=== PATIENT | male | born 1955 | race Hispanic/Latino ===

== ENCOUNTER 2020-09-29 19:47 | Emergency (ER) | payer OTHER ==
[~2020-09-29] VITALS: Ht 172.7 cm; Wt 82.6 kg
[2020-09-29] MEDS ORDERED: SODIUM CHLORIDE 0.9% 1000ML 1,000 ML IV STA (20:30)
[2020-09-29] MEDS ORDERED: ATROPINE SULFATE 1 MG/ML VIAL IV ONE (20:30)
[2020-09-29] MEDS ORDERED: METHYLPREDNISOLONE SOD SUCC 125 MG/2ML VIAL IV ONE (20:30)
[2020-09-29] MEDS ORDERED: SODIUM CHLORIDE FLUSH 10 ML SYR INJ PRN (20:30)
[2020-09-29] MEDS ORDERED: METHYLPREDNISOLONE SOD SUCC 125 MG/2ML VIAL ONE (20:51)
[2020-09-29] MEDS ORDERED: SODIUM CHLORIDE 0.9% 1000ML 1,000 ML ONE (20:51)
[2020-09-29] MEDS ORDERED: ATROPINE SULFATE 0.1 MG/ML 10ML SYR ONE (20:51)
[2020-09-29] MEDS ORDERED: PIPER-TAZ 3.375 GM 50 ML ONE (23:09)
[2020-09-29] MEDS ORDERED: PIPER-TAZ 3.375 GM 50 ML IV ONE (23:15)
[2020-09-29] MEDS ORDERED: CIPRO500 MG PO (23:52)
[2020-09-29] MEDS ORDERED: METRONIDAZOLE500 MG PO (23:52)
[2020-09-29] MEDS ORDERED: PREDNISONE20 MG PO (23:52)
[2020-09-29] MEDS ORDERED: PYRIDOSTIGMINE60 MG PO (23:52)
[2020-09-29] MEDS ORDERED: ONDANSETRON ODT8 MG PO (23:52)
[2020-09-29] MEDS ORDERED: IMODIUM A-D2 M2 PO (23:52)
[2020-10-01] MEDS ORDERED: BENAZEPRIL-HCT1 EAC3 (11:22)
[2020-10-01] MEDS ORDERED: AMLODIPINE BESYL5 MG PO (11:22)
[2020-10-01] MEDS ORDERED: METFORMIN HCL850 MG PO (11:22)
[2020-10-01] MEDS ORDERED: CIPRO500 MG PO (14:21)
[2020-10-01] MEDS ORDERED: LOMOTIL TABLET1 EACH PO (14:21)
[2020-10-01] MEDS ORDERED: FLAGYL500 MG PO (14:21)
== END 2020-09-30 00:14 | disposition home or self-care (01) ==
LOC: FSED 20:15
DX: R10.84 Generalized abdominal pain (principal); K52.9 Noninfective gastroenteritis and colitis, unspecified; G70.89 Other specified myoneural disorders; R11.2 Nausea with vomiting, unspecified; E86.0 Dehydration; Z20.828 Contact with and (suspected) exposure to other viral communicable diseases
CPT/HCPCS: 71045; 74177; 80053; 82553; 84484; 85025; 85379; 99284; J0461; J2543; J2930; J7030; U0002

== ENCOUNTER 2020-10-01 10:47 | Emergency (ER) | payer OTHER ==
[~2020-10-01] VITALS: Ht 172.7 cm; Wt 75.8 kg
[~2020-10-01 10:47] MED LIST: CIPRO500 MG PO; IMODIUM A-D2 M2 PO; METRONIDAZOLE500 MG PO; ONDANSETRON ODT8 MG PO; PREDNISONE20 MG PO; PYRIDOSTIGMINE60 MG PO
[2020-10-01] MEDS ORDERED: SODIUM CHLORIDE 0.9% 1000ML 1,000 ML IV STA (11:12)
[2020-10-01] MEDS ORDERED: METFORMIN HCL850 MG PO (11:22)
[2020-10-01] MEDS ORDERED: AMLODIPINE BESYL5 MG PO (11:22)
[2020-10-01] MEDS ORDERED: BENAZEPRIL-HCT1 EAC3 (11:22)
[2020-10-01] MEDS ORDERED: SODIUM CHLORIDE 0.9% 1000ML 1,000 ML ONE (11:33)
[2020-10-01] MEDS ORDERED: ONDANSETRON HCL INJ 2MG/ML 2ML 2 MG/ML VIAL IV NR (12:30)
[2020-10-01] MEDS ORDERED: LOMOTIL TABLET1 EACH PO (14:21)
[2020-10-01] MEDS ORDERED: FLAGYL500 MG PO (14:21)
[2020-10-01] MEDS ORDERED: CIPRO500 MG PO (14:21)
[2020-10-01 14:56] VITALS: BP 138/72
== END 2020-10-01 14:42 | disposition home or self-care (01) ==
LOC: FSED 11:14
DX: R10.9 Unspecified abdominal pain (principal); R19.7 Diarrhea, unspecified; D72.829 Elevated white blood cell count, unspecified; E11.65 Type 2 diabetes mellitus with hyperglycemia; I10 Essential (primary) hypertension; F17.210 Nicotine dependence, cigarettes, uncomplicated
CPT/HCPCS: 74176; 80048; 80076; 81003; 85025; 99284; J7030

== ENCOUNTER 2020-10-03 13:26 | Emergency (ER) | payer OTHER ==
[~2020-10-03] VITALS: Ht 172.7 cm; Wt 74.4 kg
[~2020-10-03 13:26] MED LIST changes: +AMLODIPINE BESYL5 MG PO; +BENAZEPRIL-HCT1 EAC3; +FLAGYL500 MG PO; +LOMOTIL TABLET1 EACH PO; +METFORMIN HCL850 MG PO
[2020-10-03] MEDS ORDERED: SODIUM CHLORIDE 0.9% 1000ML 1,000 ML IV STA ×2 (13:43→18:32)
[2020-10-03] MEDS ORDERED: ATROPINE SULFATE 1 MG/ML VIAL IV ONE (13:45)
[2020-10-03] MEDS ORDERED: PANTOPRAZOL 40MG/SOD CHL 0.9% 50 ML IV SCH (13:45)
[2020-10-03] MEDS ORDERED: METHYLPREDNISOLONE SOD SUCC 125 MG/2ML VIAL IV ONE (13:45)
[2020-10-03] MEDS ORDERED: PIPER-TAZ 3.375 GM 50 ML IV ONE (13:45)
[2020-10-03] MEDS ORDERED: PANTOPRAZOLE 40 MG 10ML VIAL IV ONE (14:00)
[2020-10-03] MEDS ORDERED: METHYLPREDNISOLONE SOD SUCC 125 MG/2ML VIAL ONE (14:23)
[2020-10-03] MEDS ORDERED: PANTOPRAZOLE 40 MG 10ML VIAL ONE (14:23)
[2020-10-03] MEDS ORDERED: PANTOPRAZOL 40MG/SOD CHL 0.9% 50 ML IV ONE (14:24)
[2020-10-03] MEDS ORDERED: SODIUM CHLORIDE 0.9% 1000ML 1,000 ML ONE (14:24)
[2020-10-03] MEDS ORDERED: PIPER-TAZ 3.375 GM 50 ML ONE (14:24)
[2020-10-03] MEDS ORDERED: ATROPINE SULFATE 0.1 MG/ML 10ML SYR ONE (14:24)
[2020-10-03] MEDS ORDERED: SODIUM CHLORIDE FLUSH 10 ML SYR INJ PRN (14:45)
== END 2020-10-03 19:40 | disposition other institution (70) ==
LOC: FSED 13:45
DX: G70.01 Myasthenia gravis with (acute) exacerbation (principal); K92.2 Gastrointestinal hemorrhage, unspecified; K52.9 Noninfective gastroenteritis and colitis, unspecified; E86.0 Dehydration; R94.5 Abnormal results of liver function studies; E11.65 Type 2 diabetes mellitus with hyperglycemia; Z20.828 Contact with and (suspected) exposure to other viral communicable diseases; I10 Essential (primary) hypertension; R94.31 Abnormal electrocardiogram [ECG] [EKG]
CPT/HCPCS: 71046; 74022; 80048; 80076; 81003; 82270; 82553; 83880; 84484; 85610; 96374; 96375; 99284; C9113; J2543; J2930; J7030; U0002; 93005; J0461

== ENCOUNTER 2021-11-07 15:09 | Emergency (ER) | payer OTHER ==
[~2021-11-07] VITALS: Ht 172.7 cm; Wt 72.3 kg
[2021-11-07] MEDS ORDERED: IBUPROFEN 600 MG TAB PO STA (15:30)
[2021-11-07] MEDS ORDERED: ONDANSETRON HCL INJ 2MG/ML 2ML 2 MG/ML VIAL IV STA (15:30)
[2021-11-07] MEDS ORDERED: SODIUM CHLORIDE 0.9% 500ML 500 ML IV ONE (15:30)
[2021-11-07] MEDS ORDERED: CRESTOR10 MG PO (15:46)
[2021-11-07] MEDS ORDERED: DILTIAZEM HCL60 MG PO (15:46)
[2021-11-07] MEDS ORDERED: MONTELUKAST SOD10 MG PO (15:46)
[2021-11-07] MEDS ORDERED: IBUPROFEN 600 MG TAB ONE (15:50)
[2021-11-07] MEDS ORDERED: ONDANSETRON HCL INJ 2MG/ML 2ML 2 MG/ML VIAL ONE (15:50)
[2021-11-07] MEDS ORDERED: SODIUM CHLORIDE 0.9% 500ML 500 ML ONE (15:50)
[2021-11-07] MEDS ORDERED: IBUPROFEN600 MG PO (16:43)
[2021-11-07] MEDS ORDERED: ONDANSETRON ODT4 MG PO (16:43)
== END 2021-11-07 17:23 | disposition home or self-care (01) ==
LOC: FSED 15:15
DX: U07.1 COVID-19 (principal); R50.9 Fever, unspecified; R05.9 Cough, unspecified; I10 Essential (primary) hypertension; E11.9 Type 2 diabetes mellitus without complications; G70.00 Myasthenia gravis without (acute) exacerbation; F17.210 Nicotine dependence, cigarettes, uncomplicated
CPT/HCPCS: 96374; 99283; J2405; J7040

== ENCOUNTER 2021-11-10 09:16 | Inpatient (IN) | payer OTHER ==
[~2021-11-10] VITALS: Ht 172.7 cm; Wt 72.1 kg
[~2021-11-10 09:16] MED LIST changes: +CRESTOR10 MG PO; +DILTIAZEM HCL60 MG PO; +IBUPROFEN600 MG PO; +MONTELUKAST SOD10 MG PO; +ONDANSETRON ODT4 MG PO
[2021-11-10] MEDS ORDERED: SODIUM CHLORIDE 0.9% 1000ML 1,000 ML IV STA (09:47)
[2021-11-10] MEDS ORDERED: DEXAMETHASONE SOD PHOS 10 MG/1 ML VIAL IV SCH (10:00)
[2021-11-10 10:03] LABS: BASOPHILS # (AUTO) 0.1 (0.0-0.1); BASOPHILS % 0.3 % (0.0-1.0); EOSINOPHILS # (AUTO) 0.1 (0.0-0.4); EOSINOPHILS % 0.9 % (0.0-6.0); HEMATOCRIT 48.7 % (38.2-49.6); HEMOGLOBIN 15.7 g/dL (14.0-18.0); LYMPHOCYTES # (AUTO) 1.7 (1.0-3.2); LYMPHOCYTES % 10.8 % (18.0-39.1); MEAN CORPUSCULAR HEMOGLOBIN 31.2 pg (28-32); MEAN CORPUSCULAR HGB CONC 32.2 g/dL (31-35); MEAN CORPUSCULAR VOLUME 96.8 fL (81-99); NEUTROPHILS % 81.6 % (38.7-80.0); PLATELET COUNT 336 x10e3/uL (140-360); RED BLOOD COUNT 5.03 x10e6/uL (4.3-5.7); RED CELL DISTRIBUTION WIDTH 12.9 % (11.7-14.4)
[2021-11-10] MEDS: ZINC SULFATE 50 MG CAP PO SCH (10:14)
[2021-11-10] MEDS: ASCORBIC ACID 500 MG TAB PO SCH ×2 (10:14→16:21)
[2021-11-10 10:21] LABS: ALBUMIN 2.8 g/dL (3.5-5.0); ALBUMIN/GLOBULIN RATIO 0.6 (0.8-2.0); ANION GAP 18.7 mmol/L (8-16); CALCIUM 9.6 mg/dL (8.4-10.2); CREATININE, SERUM 0.85 mg/dL (0.72-1.25); POTASSIUM 3.7 mmol/L (3.5-5.1)
[2021-11-10 10:23] LABS: CREATINE KINASE MB 0.3 ng/mL (0-5.0); INR 1.04; PARTIAL THROMBOPLASTIN TIME 40.1 seconds (23.8-35.5); PROTHROMBIN TIME 14.3 seconds (11.9-14.5)
[2021-11-10] MEDS: CEFTRIAXONE 1 GM in SODIUM CHLORIDE 0.9% 50ML 50 ML IV SCH (10:53)
[2021-11-10] MEDS ORDERED: ONDANSETRON HCL INJ 2MG/ML 2ML 2 MG/ML VIAL IV PRN (11:15)
[2021-11-10] MEDS ORDERED: SODIUM CHLORIDE 0.9% 1000ML 1,000 ML IV ONE (11:15)
[2021-11-10] MEDS ORDERED: PREDNISONE5 MG PO (12:13)
[2021-11-10] MEDS ORDERED: PYRIDOSTIGMINE PO (12:13)
[2021-11-10 12:45] VITALS: BP 124/74
[2021-11-10 13:00] VITALS: BP 124/74
[2021-11-10] MEDS ORDERED: REMDESIVIR 100MG 200 MG in SODIUM CHLORIDE 0.9% 100 ML IV ONE (14:00)
[2021-11-10] MEDS: ENOXAPARIN SOD INJ 40 MG/0.4 ML SYR SC SCH (16:21)
[2021-11-10] MEDS: DEXAMETHASONE SOD PHOS 10 MG/1 ML VIAL IV SCH ×2 (16:21→21:00)
[2021-11-10] MEDS: PYRIDOSTIGMINE BROMIDE 60 MG TAB PO SCH (16:21)
[2021-11-10] MEDS ORDERED: SODIUM CHLORIDE 0.9% 100 ML ONE (16:24)
[2021-11-10 16:25] VITALS: BP 115/70
[2021-11-10 20:00] VITALS: BP 115/69
[2021-11-10 21:00] VITALS: BP 115/69
[2021-11-11] VITALS (8 sets, daily range): BP systolic 109–130; BP diastolic 60–76
[2021-11-11] MEDS: PYRIDOSTIGMINE BROMIDE 60 MG TAB PO SCH ×5 (06:00→23:46)
[2021-11-11 06:43] LABS: BASOPHILS % 0.2 % (0.0-1.0); EOSINOPHILS % 0.1 % (0.0-6.0); HEMATOCRIT 41.5 % (38.2-49.6); HEMOGLOBIN 13.2 g/dL (14.0-18.0); LYMPHOCYTES # (AUTO) 1.1 (1.0-3.2); MEAN CORPUSCULAR HEMOGLOBIN 31.4 pg (28-32); MEAN CORPUSCULAR HGB CONC 31.8 g/dL (31-35); MEAN CORPUSCULAR VOLUME 98.8 fL (81-99); MONOCYTES # (AUTO) 0.7 (0.2-0.8); MONOCYTES % 6.4 % (4.4-11.3); NEUTROPHILS % 82.6 % (38.7-80.0); PLATELET COUNT 331 x10e3/uL (140-360); RED CELL DISTRIBUTION WIDTH 12.7 % (11.7-14.4)
[2021-11-11 07:20] LABS: ALBUMIN 2.2 g/dL (3.5-5.0); ALBUMIN/GLOBULIN RATIO 0.6 (0.8-2.0); ANION GAP 14.7 mmol/L (8-16); CALCIUM 8.8 mg/dL (8.4-10.2); CREATININE, SERUM 0.6 mg/dL (0.72-1.25); POTASSIUM 3.7 mmol/L (3.5-5.1)
[2021-11-11 07:52] LABS: CREATINE KINASE MB 0.7 ng/mL (0-5.0)
[2021-11-11] MEDS: ASCORBIC ACID 500 MG TAB PO SCH ×2 (08:39→17:20)
[2021-11-11] MEDS: CEFTRIAXONE 1 GM in SODIUM CHLORIDE 0.9% 50ML 50 ML IV SCH (08:39)
[2021-11-11] MEDS: ZINC SULFATE 50 MG CAP PO SCH (08:39)
[2021-11-11] MEDS: AMLODIPINE BESYLATE 5 MG TAB PO SCH (08:39)
[2021-11-11] MEDS: DEXAMETHASONE SOD PHOS 10 MG/1 ML VIAL IV SCH ×2 (08:39→20:55)
[2021-11-11] MEDS: REMDESIVIR 100MG 100 MG in SODIUM CHLORIDE 0.9% 100 ML IV SCH (14:25)
[2021-11-11] MEDS: ENOXAPARIN SOD INJ 40 MG/0.4 ML SYR SC SCH (17:20)
[2021-11-12] VITALS (7 sets, daily range): BP systolic 112–122; BP diastolic 62–74
[2021-11-12] MEDS: PYRIDOSTIGMINE BROMIDE 60 MG TAB PO SCH ×4 (06:08→23:51)
[2021-11-12 06:55] LABS: CREATINE KINASE MB 0.6 ng/mL (0-5.0)
[2021-11-12] MEDS: CEFTRIAXONE 1 GM in SODIUM CHLORIDE 0.9% 50ML 50 ML IV SCH (08:43)
[2021-11-12] MEDS: ZINC SULFATE 50 MG CAP PO SCH (08:43)
[2021-11-12] MEDS: ASCORBIC ACID 500 MG TAB PO SCH ×2 (08:43→16:07)
[2021-11-12] MEDS: AMLODIPINE BESYLATE 5 MG TAB PO SCH (08:43)
[2021-11-12] MEDS: DEXAMETHASONE SOD PHOS 10 MG/1 ML VIAL IV SCH ×2 (08:43→20:44)
[2021-11-12] MEDS: REMDESIVIR 100MG 100 MG in SODIUM CHLORIDE 0.9% 100 ML IV SCH (14:00)
[2021-11-12] MEDS: ENOXAPARIN SOD INJ 40 MG/0.4 ML SYR SC SCH (16:07)
[2021-11-13] VITALS (7 sets, daily range): BP systolic 113–130; BP diastolic 65–78
[2021-11-13] MEDS: PYRIDOSTIGMINE BROMIDE 60 MG TAB PO SCH ×3 (05:25→17:18)
[2021-11-13] MEDS: ZINC SULFATE 50 MG CAP PO SCH (08:27)
[2021-11-13] MEDS: CEFTRIAXONE 1 GM in SODIUM CHLORIDE 0.9% 50ML 50 ML IV SCH (08:27)
[2021-11-13] MEDS: AZITHROMYCIN 250 MG TAB PO SCH (08:27)
[2021-11-13] MEDS: AMLODIPINE BESYLATE 5 MG TAB PO SCH (08:27)
[2021-11-13] MEDS: ASCORBIC ACID 500 MG TAB PO SCH ×2 (08:27→17:17)
[2021-11-13] MEDS: DEXAMETHASONE SOD PHOS INJ 4 MG/ML SDV IV SCH ×2 (08:56→21:26)
[2021-11-13] MEDS ORDERED: SODIUM CHLORIDE 0.9% 250ML 250 ML ONE (17:05)
[2021-11-13] MEDS: REMDESIVIR 100MG 100 MG in SODIUM CHLORIDE 0.9% 100 ML IV SCH (17:17)
[2021-11-13] MEDS: ENOXAPARIN SOD INJ 40 MG/0.4 ML SYR SC SCH (17:17)
[2021-11-14] VITALS: BP 118/67
[2021-11-14] MEDS: PYRIDOSTIGMINE BROMIDE 60 MG TAB PO SCH ×4 (00:36→16:51)
[2021-11-14 04:00] VITALS: BP 125/66
[2021-11-14] MEDS ORDERED: DEXTROSE 50% SYRINGE 50 ML IV PRN ×2 (05:30)
[2021-11-14 06:12] LABS: BASOPHILS % 0.1 % (0.0-1.0); HEMATOCRIT 41.1 % (38.2-49.6); HEMOGLOBIN 13.2 g/dL (14.0-18.0); LYMPHOCYTES # (AUTO) 1.1 (1.0-3.2); LYMPHOCYTES % 13.3 % (18.0-39.1); MEAN CORPUSCULAR HEMOGLOBIN 30.9 pg (28-32); MEAN CORPUSCULAR HGB CONC 32.1 g/dL (31-35); MEAN CORPUSCULAR VOLUME 96.3 fL (81-99); MONOCYTES # (AUTO) 0.5 (0.2-0.8); MONOCYTES % 6.1 % (4.4-11.3); NEUTROPHILS # (AUTO) 6.7 (2.1-6.9); NEUTROPHILS % 79.2 % (38.7-80.0); PLATELET COUNT 360 x10e3/uL (140-360); RED BLOOD COUNT 4.27 x10e6/uL (4.3-5.7); RED CELL DISTRIBUTION WIDTH 12.5 % (11.7-14.4)
[2021-11-14 06:39] LABS: ALBUMIN 2.3 g/dL (3.5-5.0); ALBUMIN/GLOBULIN RATIO 0.7 (0.8-2.0); ANION GAP 13.4 mmol/L (8-16); CALCIUM 8.4 mg/dL (8.4-10.2); CREATININE, SERUM 0.71 mg/dL (0.72-1.25); POTASSIUM 4.4 mmol/L (3.5-5.1)
[2021-11-14] MEDS ORDERED: INSULIN LISPRO 100 UNIT/1 ML 3ML VIAL SQ SCH (07:30)
[2021-11-14 08:00] VITALS: BP 125/66
[2021-11-14 08:19] VITALS: BP 123/65
[2021-11-14] MEDS: INSULIN LISPRO 100 UNIT/1 ML 3ML VIAL SQ SCH ×3 (10:13→16:50)
[2021-11-14] MEDS: DEXAMETHASONE SOD PHOS INJ 4 MG/ML SDV IV SCH (10:13)
[2021-11-14] MEDS: ZINC SULFATE 50 MG CAP PO SCH (10:14)
[2021-11-14] MEDS: AZITHROMYCIN 250 MG TAB PO SCH (10:14)
[2021-11-14] MEDS: AMLODIPINE BESYLATE 5 MG TAB PO SCH (10:14)
[2021-11-14] MEDS: ASCORBIC ACID 500 MG TAB PO SCH ×2 (10:14→16:51)
[2021-11-14] MEDS: CEFTRIAXONE 1 GM in SODIUM CHLORIDE 0.9% 50ML 50 ML IV SCH (10:14)
[2021-11-14 12:11] VITALS: BP 117/75
[2021-11-14] MEDS: REMDESIVIR 100MG 100 MG in SODIUM CHLORIDE 0.9% 100 ML IV SCH (14:00)
[2021-11-14] MEDS ORDERED: AZITHROMYCIN250 MG PO (14:38)
[2021-11-14] MEDS ORDERED: ASPIRIN325 MG PO (14:38)
[2021-11-14] MEDS ORDERED: PREDNISONE5 MG PO (14:38)
[2021-11-14] MEDS ORDERED: DEXAMETHASONE4 MG PO (14:38)
[2021-11-14 15:53] VITALS: BP 132/68
[2021-11-14] MEDS: ENOXAPARIN SOD INJ 40 MG/0.4 ML SYR SC SCH (16:51)
[2021-11-14] MEDS ORDERED: ONDANSETRON HCL 4 MG ORAL DISINTEGRATING TAB PO PRN (17:15)
[2021-11-14] MEDS ORDERED: DEXAMETHASONE SOD PHOS INJ 4 MG/ML SDV IV SCH (21:00)
== END 2021-11-14 18:21 | disposition home or self-care (01) | DRG 177 ==
LOC: ER 09:21 → ERHOLD 11:07 → IMCU 12:55
PROVIDERS: ADMIT Internal Medicine; ATTEND Internal Medicine
PROC: 8E0ZXY6 Isolation (ICD-10-PCS; principal; 2021-11-10)
PROC: 5A0935A Assistance with Respiratory Ventilation, Less than 24 Consecutive Hours, High Flow/Velocity Cannula (ICD-10-PCS; 2021-11-10)
PROC: XW033E5 Introduction of Remdesivir Anti-infective into Peripheral Vein, Percutaneous Approach, New Technology Group 5 (ICD-10-PCS; 2021-11-11)
DX: U07.1 COVID-19 (principal); J96.01 Acute respiratory failure with hypoxia; J12.82 Pneumonia due to coronavirus disease 2019; G70.01 Myasthenia gravis with (acute) exacerbation; I10 Essential (primary) hypertension; E78.5 Hyperlipidemia, unspecified; E11.9 Type 2 diabetes mellitus without complications; G35 Multiple sclerosis; R19.7 Diarrhea, unspecified; R49.0 Dysphonia; Z87.891 Personal history of nicotine dependence
CPT/HCPCS: 36415; 71045; 80053; 82550; 82553; 82948; 83880; 84484; 85025; 85610; 85730; 87040; 93005; 94799; 99251; 99284; J0248; J0456; J0696; J1100; J1650; J7030; J7050; U0002

== ENCOUNTER 2021-11-26 23:34 | Inpatient (IN) | payer OTHER ==
[~2021-11-26] VITALS: Ht 172.7 cm; Wt 69.9 kg
[~2021-11-26 23:34] MED LIST changes: +ASPIRIN325 MG PO; +AZITHROMYCIN250 MG PO; +DEXAMETHASONE4 MG PO; +PREDNISONE5 MG PO; +PYRIDOSTIGMINE PO
[2021-11-26] MEDS ORDERED: CEFTRIAXONE 2 GM in SODIUM CHLORIDE 0.9% 100 ML IV ONE (23:45)
[2021-11-26] MEDS ORDERED: SODIUM CHLORIDE 0.9% 1000ML 1,000 ML IV SCH (23:45)
[2021-11-26] MEDS ORDERED: ACETAMINOPHEN 325 MG TAB PO ONE (23:45)
[2021-11-26 23:56] LABS: BASOPHILS % 0.2 % (0.0-1.0); EOSINOPHILS # (AUTO) 0.1 (0.0-0.4); EOSINOPHILS % 0.6 % (0.0-6.0); HEMOGLOBIN 15.9 g/dL (14.0-18.0); LYMPHOCYTES # (AUTO) 0.9 (1.0-3.2); LYMPHOCYTES % 7.5 % (18.0-39.1); MEAN CORPUSCULAR HEMOGLOBIN 30.8 pg (28-32); MEAN CORPUSCULAR HGB CONC 32.4 g/dL (31-35); MONOCYTES # (AUTO) 0.5 (0.2-0.8); MONOCYTES % 4.2 % (4.4-11.3); NEUTROPHILS # (AUTO) 10.5 (2.1-6.9); NEUTROPHILS % 86.4 % (38.7-80.0); PLATELET COUNT 151 x10e3/uL (140-360); RED BLOOD COUNT 5.16 x10e6/uL (4.3-5.7); RED CELL DISTRIBUTION WIDTH 13.5 % (11.7-14.4)
[2021-11-27] VITALS (9 sets, daily range): BP systolic 100–131; BP diastolic 60–75
[2021-11-27] MEDS ORDERED: SODIUM CHLORIDE 0.9% 1000ML 1,000 ML IV ONE (00:15)
[2021-11-27 00:17] LABS: ALBUMIN 2.8 g/dL (3.5-5.0); ALBUMIN/GLOBULIN RATIO 0.7 (0.8-2.0); ANION GAP 18.8 mmol/L (8-16); CALCIUM 8.8 mg/dL (8.4-10.2); CREATININE, SERUM 0.83 mg/dL (0.72-1.25); POTASSIUM 3.8 mmol/L (3.5-5.1)
[2021-11-27 00:23] LABS: CREATINE KINASE MB 0.6 ng/mL (0-5.0)
[2021-11-27] MEDS ORDERED: IOPAMIDOL 370 MG/ML 200 ML INFUS..BTL INJ ONE (00:51)
[2021-11-27] MEDS ORDERED: SODIUM CHLORIDE 0.9% 50ML 50 ML ONE (00:51)
[2021-11-27 01:31] LABS: CLARITY,URINE CLOUDY (CLEAR); COLOR,URINE AMBER (YELLOW); KETONES,URINE TRACE (NEGATIVE); LEUKOCYTE ESTERASE ,URINE NEGATIVE (NEGATIVE); NITRITE,URINE NEGATIVE (NEGATIVE); PROTEIN,URINE DIPSTICK 2+ (NEGATIVE)
[2021-11-27 01:36] LABS: BACTERIA,URINE FEW /HPF; EPITHELIAL CELLS,URINE MANY /LPF; RBC,URINE 0-5 /HPF (0-5)
[2021-11-27] MEDS: SODIUM CHLORIDE 0.9% 1000ML 1,000 ML IV SCH ×3 (02:25→17:11)
[2021-11-27] MEDS ORDERED: ACETAMINOPHEN 325 MG TAB PO ONE (02:45)
[2021-11-27] MEDS ORDERED: ALBUTEROL SULF 0.083% NEB SOLN 3 ML NEB NEB SCH (02:45)
[2021-11-27] MEDS ORDERED: ACETAMINOPHEN 325 MG TAB PO PRN (03:30)
[2021-11-27] MEDS ORDERED: ONDANSETRON HCL INJ 2MG/ML 2ML 2 MG/ML VIAL IV PRN (04:45)
[2021-11-27] MEDS ORDERED: METHYLPREDNISOLONE SOD SUCC 40 MG/ML VIAL 1ML IV SCH (05:00)
[2021-11-27] MEDS: METHYLPREDNISOLONE SOD SUCC 40 MG/ML VIAL 1ML IV SCH ×2 (05:28→16:11)
[2021-11-27] MEDS ORDERED: IPRATROPIUM BROMIDE 0.02% 2.5 ML NEB NEB SCH (06:00)
[2021-11-27] MEDS ORDERED: DEXTROSE 50% SYRINGE 50 ML IV PRN (07:15)
[2021-11-27] MEDS: PYRIDOSTIGMINE BROMIDE 60 MG TAB PO SCH ×6 (08:04→21:19)
[2021-11-27] MEDS: ASPIRIN 325 MG TAB EC PO SCH (08:04)
[2021-11-27] MEDS: METFORMIN HCL 500 MG TAB PO SCH ×2 (08:04→17:10)
[2021-11-27] MEDS: CEFTRIAXONE 1 GM in SODIUM CHLORIDE 0.9% 50ML 50 ML IV SCH (08:04)
[2021-11-27] MEDS: INSULIN REGULAR, HUMAN 100 UNIT/1 ML SQ SCH ×4 (08:06→21:20)
[2021-11-27 08:43] LABS: CREATINE KINASE 12 IU/L (30-200)
[2021-11-27] MEDS: IPRATROPIUM/ALBUTEROL SULFATE 4 GM INH INH SCH ×3 (09:20→19:08)
[2021-11-27 11:27] LABS: CREATINE KINASE MB < 1.00 ng/mL (0-4.3)
[2021-11-27] MEDS: MONTELUKAST SODIUM 10 MG TAB PO SCH (17:10)
[2021-11-27 17:25] LABS: CREATINE KINASE MB 0.3 ng/mL (0-5.0)
[2021-11-27] MEDS: CRESTOR 10MG PO SCH (21:19)
[2021-11-28] MEDS: IPRATROPIUM/ALBUTEROL SULFATE 4 GM INH INH SCH ×4 (01:22→20:21)
[2021-11-28 04:00] VITALS: BP 102/64
[2021-11-28] MEDS: METHYLPREDNISOLONE SOD SUCC 40 MG/ML VIAL 1ML IV SCH ×2 (05:00→16:05)
[2021-11-28] MEDS: SODIUM CHLORIDE 0.9% 1000ML 1,000 ML IV SCH ×3 (06:03→17:13)
[2021-11-28 06:21] LABS: BASOPHILS % 0.1 % (0.0-1.0); EOSINOPHILS % 0.4 % (0.0-6.0); HEMATOCRIT 37.2 % (38.2-49.6); LYMPHOCYTES % 11.3 % (18.0-39.1); MEAN CORPUSCULAR HEMOGLOBIN 30.6 pg (28-32); MEAN CORPUSCULAR HGB CONC 32.3 g/dL (31-35); MEAN CORPUSCULAR VOLUME 94.9 fL (81-99); MONOCYTES # (AUTO) 0.6 (0.2-0.8); MONOCYTES % 6.5 % (4.4-11.3); NEUTROPHILS # (AUTO) 7.3 (2.1-6.9); NEUTROPHILS % 80.7 % (38.7-80.0); PLATELET COUNT 141 x10e3/uL (140-360); RED BLOOD COUNT 3.92 x10e6/uL (4.3-5.7); RED CELL DISTRIBUTION WIDTH 13.5 % (11.7-14.4)
[2021-11-28 06:50] LABS: ALBUMIN 2.1 g/dL (3.5-5.0); ALBUMIN/GLOBULIN RATIO 0.7 (0.8-2.0); ANION GAP 11.9 mmol/L (8-16); CALCIUM 7.8 mg/dL (8.4-10.2); CREATININE, SERUM 0.56 mg/dL (0.72-1.25); POTASSIUM 3.9 mmol/L (3.5-5.1)
[2021-11-28] MEDS: INSULIN REGULAR, HUMAN 100 UNIT/1 ML SQ SCH ×4 (07:30→20:36)
[2021-11-28] MEDS: CEFTRIAXONE 1 GM in SODIUM CHLORIDE 0.9% 50ML 50 ML IV SCH (08:09)
[2021-11-28] MEDS: PYRIDOSTIGMINE BROMIDE 60 MG TAB PO SCH ×3 (08:09→20:35)
[2021-11-28] MEDS: ASPIRIN 325 MG TAB EC PO SCH (08:10)
[2021-11-28] MEDS: METFORMIN HCL 500 MG TAB PO SCH ×2 (08:15→16:05)
[2021-11-28 08:43] LABS: CREATINE KINASE MB 0.4 ng/mL (0-5.0)
[2021-11-28 09:29] VITALS: BP 119/61
[2021-11-28] MEDS ORDERED: ONDANSETRON HCL 4 MG ORAL DISINTEGRATING TAB PO PRN (10:45)
[2021-11-28 12:35] VITALS: BP 113/62
[2021-11-28] MEDS: MONTELUKAST SODIUM 10 MG TAB PO SCH (16:05)
[2021-11-28 16:39] VITALS: BP 116/66
[2021-11-28 20:33] VITALS: BP 123/61
[2021-11-28] MEDS: CRESTOR 10MG PO SCH (20:35)
[2021-11-28 21:00] VITALS: BP 123/61
[2021-11-29] VITALS (8 sets, daily range): BP systolic 113–142; BP diastolic 63–65
[2021-11-29] MEDS: IPRATROPIUM/ALBUTEROL SULFATE 4 GM INH INH SCH ×4 (01:21→19:37)
[2021-11-29] MEDS: SODIUM CHLORIDE 0.9% 1000ML 1,000 ML IV SCH ×3 (05:18→17:44)
[2021-11-29] MEDS: METHYLPREDNISOLONE SOD SUCC 40 MG/ML VIAL 1ML IV SCH ×2 (05:18→17:43)
[2021-11-29] MEDS: AZITHROMYCIN 250 MG TAB PO SCH (05:18)
[2021-11-29] MEDS: PYRIDOSTIGMINE BROMIDE 60 MG TAB PO SCH ×3 (09:01→20:48)
[2021-11-29] MEDS: METFORMIN HCL 500 MG TAB PO SCH ×2 (09:01→17:43)
[2021-11-29] MEDS: CEFTRIAXONE 1 GM in SODIUM CHLORIDE 0.9% 50ML 50 ML IV SCH (09:01)
[2021-11-29] MEDS: ASPIRIN 325 MG TAB EC PO SCH (09:01)
[2021-11-29] MEDS: INSULIN REGULAR, HUMAN 100 UNIT/1 ML SQ SCH ×4 (09:04→20:49)
[2021-11-29] MEDS: MONTELUKAST SODIUM 10 MG TAB PO SCH (17:43)
[2021-11-29] MEDS: CRESTOR 10MG PO SCH (20:48)
[2021-11-30 01:05] VITALS: BP 119/55
[2021-11-30] MEDS: IPRATROPIUM/ALBUTEROL SULFATE 4 GM INH INH SCH ×3 (01:55→12:15)
[2021-11-30] MEDS: METHYLPREDNISOLONE SOD SUCC 40 MG/ML VIAL 1ML IV SCH ×2 (04:54→16:32)
[2021-11-30] MEDS: AZITHROMYCIN 250 MG TAB PO SCH (04:54)
[2021-11-30] MEDS: SODIUM CHLORIDE 0.9% 1000ML 1,000 ML IV SCH ×3 (04:54→16:32)
[2021-11-30 05:47] VITALS: BP 119/65
[2021-11-30 08:00] VITALS: BP 108/66
[2021-11-30] MEDS: METFORMIN HCL 500 MG TAB PO SCH ×2 (08:26→16:32)
[2021-11-30] MEDS: ASPIRIN 325 MG TAB EC PO SCH (08:26)
[2021-11-30] MEDS: PYRIDOSTIGMINE BROMIDE 60 MG TAB PO SCH ×2 (08:26→15:14)
[2021-11-30] MEDS: CEFTRIAXONE 1 GM in SODIUM CHLORIDE 0.9% 50ML 50 ML IV SCH (08:26)
[2021-11-30] MEDS: INSULIN REGULAR, HUMAN 100 UNIT/1 ML SQ SCH ×3 (08:57→16:33)
[2021-11-30 09:52] VITALS: BP 119/65
[2021-11-30 12:00] VITALS: BP 112/62
[2021-11-30 16:00] VITALS: BP 127/66
[2021-11-30] MEDS: MONTELUKAST SODIUM 10 MG TAB PO SCH (16:32)
== END 2021-11-30 19:26 | disposition home or self-care (01) | DRG 177 ==
LOC: ER 23:41 → ERHOLD 11-27 02:48 → IMCU 11-27 04:56 → OBSVTOIN 11-28 11:24
PROVIDERS: ADMIT Internal Medicine; ATTEND Internal Medicine
PROC: 3E03329 Introduction of Other Anti-infective into Peripheral Vein, Percutaneous Approach (ICD-10-PCS; 2021-11-27)
PROC: 8E0ZXY6 Isolation (ICD-10-PCS; principal; 2021-11-28)
DX: U07.1 COVID-19 (principal); J12.82 Pneumonia due to coronavirus disease 2019; J15.9 Unspecified bacterial pneumonia; G70.01 Myasthenia gravis with (acute) exacerbation; G70.00 Myasthenia gravis without (acute) exacerbation; Z20.822 Contact with and (suspected) exposure to COVID-19; I10 Essential (primary) hypertension; E11.9 Type 2 diabetes mellitus without complications; Z87.891 Personal history of nicotine dependence
CPT/HCPCS: 36415; 71045; 74177; 80053; 81001; 82550; 82553; 82948; 83605; 84484; 85025; 87040; 87086; 93005; 94664; 94799; 96361; 96372; 99251; 99284; G0378; J0456; J0696; J1817; J2920; J7030; J7050; Q9967; U0002

== ENCOUNTER → 2022-08-01 | Outpatient (CLI) | payer OTHER ==
[2022-07-30 11:54] LABS: BASOPHILS # (AUTO) 0.1 (0.0-0.1); BASOPHILS % 0.3 % (0.0-1.0); EOSINOPHILS % 0.2 % (0.0-6.0); LYMPHOCYTES # (AUTO) 1.2 (1.0-3.2); LYMPHOCYTES % 7.9 % (18.0-39.1); MEAN CORPUSCULAR HEMOGLOBIN 28.5 pg (28-32); MEAN CORPUSCULAR HGB CONC 30.2 g/dL (31-35); MEAN CORPUSCULAR VOLUME 94.3 fL (81-99); MONOCYTES # (AUTO) 0.8 (0.2-0.8); MONOCYTES % 5.3 % (4.4-11.3); NEUTROPHILS % 85.6 % (38.7-80.0); PLATELET COUNT 268 x10e3/uL (140-360); RED BLOOD COUNT 4.56 x10e6/uL (4.3-5.7); RED CELL DISTRIBUTION WIDTH 14.2 % (11.7-14.4)
[~2022-08-01] MED LIST changes: +AMIODARONE HCL200 MG PO; +ELIQUIS5 MG PO; +GLIMEPIRIDE2 MG PO
== END | disposition home or self-care (01) ==
LOC: RAD 05:51 → OR 05:51 → EDSTATUS 08:00
PROVIDERS: ATTEND Internal Medicine Gastroenterology
DX: R13.10 Dysphagia, unspecified (principal); Z93.1 Gastrostomy status; Z01.810 Encounter for preprocedural cardiovascular examination; Z01.812 Encounter for preprocedural laboratory examination; Z53.8 Procedure and treatment not carried out for other reasons
CPT/HCPCS: 36415; 85025; 93005

== ENCOUNTER 2024-11-13 19:27 | Emergency (ER) | payer OTHER ==
[~2024-11-13] VITALS: Ht 172.7 cm; Wt 65.8 kg
[~2024-11-13 19:27] MED LIST changes: +CEPHALEXIN500 MG PO; +VITAMIN D3 COM1 EACH PO; +vitamin b 12 SC
[2024-11-13] MEDS ORDERED: SODIUM CHLORIDE FLUSH 10 ML SYR IV PRN (20:15)
[2024-11-13 20:26] LABS: BASOPHILS % 0.4 % (0.0-1.0); EOSINOPHILS # (AUTO) 0.1 (0.0-0.4); EOSINOPHILS % 1.2 % (0.0-6.0); HEMATOCRIT 46.6 % (38.2-49.6); HEMOGLOBIN 14.6 g/dL (14.0-18.0); LYMPHOCYTES # (AUTO) 2.5 (1.0-3.2); LYMPHOCYTES % 31.6 % (18.0-39.1); MEAN CORPUSCULAR HEMOGLOBIN 29.6 pg (28-32); MEAN CORPUSCULAR HGB CONC 31.3 g/dL (31-35); MEAN CORPUSCULAR VOLUME 94.5 fL (81-99); MONOCYTES # (AUTO) 0.9 (0.2-0.8); MONOCYTES % 11.5 % (4.4-11.3); NEUTROPHILS # (AUTO) 4.4 (2.1-6.9); NEUTROPHILS % 55.1 % (38.7-80.0); PLATELET COUNT 247 x10e3/uL (140-360); RED BLOOD COUNT 4.93 x10e6/uL (4.3-5.7); RED CELL DISTRIBUTION WIDTH 12.7 % (11.7-14.4); WHITE BLOOD COUNT 8.03 x10e3/uL (4.8-10.8)
[2024-11-13] MEDS: ONDANSETRON HCL INJ 2MG/ML 2ML 2 MG/ML VIAL IV STA (21:21)
[2024-11-13] MEDS: Morphine 4mg INJECTION 4 MG/ML INJ IV ONE (21:21)
[2024-11-13 21:22] LABS: CLARITY,URINE CLEAR (CLEAR); COLOR,URINE YELLOW (YELLOW); GLUCOSE, URINE 1+ (NEGATIVE); KETONES,URINE 1+ (NEGATIVE); LEUKOCYTE ESTERASE ,URINE TRACE (NEGATIVE); NITRITE,URINE NEGATIVE (NEGATIVE); PH,URINE 5.5 (5 - 7); PROTEIN,URINE DIPSTICK 1+ (NEGATIVE)
[2024-11-13] MEDS: SODIUM CHLORIDE 0.9% 1000ML 1,000 ML IV ONE (21:22)
[2024-11-13 21:23] LABS: BILIRUBIN,URINE MODERATE (NEGATIVE)
[2024-11-13 21:32] LABS: BACTERIA,URINE MODERATE /HPF; EPITHELIAL CELLS,URINE MODERATE /LPF; MUCUS,URINE MANY (RARE); RBC,URINE 0-5 /HPF (0-5)
[2024-11-13 21:47] LABS: ALBUMIN 3.4 g/dL (3.5-5.0); ALBUMIN/GLOBULIN RATIO 1.1 (0.8-2.0); ANION GAP 18.2 mmol/L (8-16); BILIRUBIN,TOTAL 1.5 mg/dL (0.2-1.2); CALCIUM 10.3 mg/dL (8.4-10.2); CREATININE, SERUM 0.75 mg/dL (0.72-1.25); POTASSIUM 4.2 mmol/L (3.5-5.1); TOTAL PROTEIN 6.4 g/dL (6.5-8.1)
[2024-11-13 21:52] LABS: TROPONIN I 0.017 ng/mL (0-0.300)
[2024-11-13] MEDS ORDERED: IOPAMIDOL 370 MG/ML 100 ML INFUS..BTL INJ ONE (21:53)
[2024-11-14] MEDS ORDERED: ONDANSETRON ODT4 MG SL (00:10)
[2024-11-14] MEDS ORDERED: CEFDINIR300 MG PO (00:10)
[2024-11-14 00:22] VITALS: PULSE 90; RESP 16; TEMP 98.9; O2SAT 100
== END 2024-11-14 00:25 | disposition home or self-care (01) ==
LOC: ER 20:02
DX: R10.32 Left lower quadrant pain (principal); N39.0 Urinary tract infection, site not specified; R11.2 Nausea with vomiting, unspecified; I10 Essential (primary) hypertension; E11.9 Type 2 diabetes mellitus without complications; E78.5 Hyperlipidemia, unspecified; I48.91 Unspecified atrial fibrillation; R94.31 Abnormal electrocardiogram [ECG] [EKG]; I25.2 Old myocardial infarction
CPT/HCPCS: 36415; 74177; 80053; 81001; 82550; 82948; 83690; 84484; 85025; 87086; 93005; 99284; J2270; J2405; J2470; J7030; Q9967